=== PATIENT | female | born 1975 | race Caucasian/White ===

== ENCOUNTER → 2023-08-23 | Outpatient (CLI) | payer SELFPAY ==
[2023-08-23 13:55] LABS: Absolute Lymphocyte Count 1.54 X10^3/uL (0.83-4.51); Absolute Neutrophil Count 3.3 X10^3/uL (2.0-7.7); Basophil# 0.05 X10^3/uL; Basophil% 0.9 % (0-1); Eosinophil# 0.23 X10^3/uL; Eosinophils% 4.3 % (0-5); Hematocrit 30.9 % (37-47); Hemoglobin 8.9 g/dL (12.0-15.0); Lymphocyte # 1.54 X10^3/ul (0.83-4.51); Lymphocyte % 28.6 % (19-41); Mean Corp Hgb Conc 28.8 g/dL (32-36); Mean Corpuscular Hgb 22.7 pg (27.0-32.0); Mean Corpuscular Volume 78.8 fL (81-99); Mean Platelet Vol. 9.5 fl (6.2-12.0); Monocyte# 0.26 X10^3/uL; Monocyte% 4.8 % (0-10); NRBC Flagged by Analyzer 0 % (0-5); Neutrophil # 3.29 X10^3/uL (2.7-7.7); Neutrophil % 61.2 % (47-70); Platelet Count 418 K/mm3 (150-450); RBC Distribution Width CV 18.1 % (11.6-14.6); RBC Distribution Width SD 51.9 fl (35.1-43.9); Red Blood Count 3.92 M/mm3 (4.2-5.4); White Blood Count 5.4 K/mm3 (4.4-11.0)
[2023-08-23 14:04] LABS: Vitamin B12 656 pg/mL (211-911); Vitamin D,25 Hydroxy 23.9 ng/mL
[2023-08-23 14:06] LABS: Progesterone Level < 0.21 ng/mL (See Comment)
[2023-08-23 14:10] LABS: ALB/GLOB Ratio 0.9 RATIO (0.9-2.4); AST(SGOT) 13 U/L (15-37); Alanine Aminotransfer ALT/SGPT 25 U/L (13-56); Albumin, Serum 3.5 g/dL (3.2-5.0); Alkaline Phosphatase 71 U/L (45-117); Anion Gap 8 (5-15); BUN 9 mg/dL (7-18); BUN/Creat Ratio 14.2 RATIO (10-20); Calcium,Total 9.1 mg/dL (8.5-10.1); Chloride 105 mmol/L (98-107); Creatinine, Serum 0.63 mg/dL (0.55-1.02); EST Glomerular Filtration Rate 105 mL/min (>60); Est Glom Filt Rate - Afr Amer 128 mL/min (>60); Estradiol 180.6 pg/mL; Ferritin 5 ng/mL (8-252); Globulin 3.7 g/dL (2.2-4.2); Glucose 104 mg/dL (74-106); Magnesium 2.1 mg/dL (1.6-2.6); Potassium 3.9 mmol/L (3.5-5.1); Protein, Total 7.2 g/dL (6.4-8.2); Sodium Level 140 mmol/L (136-145); T4 Total, Thyroxin 9.8 ug/dL (4.8-13.9); Thyroid Stim Hormone (TSH) 1.55 uIU/mL (0.358-3.74)
[2023-08-26 11:10] LABS: Iron 17 ug/dL (50-170)
== END | disposition home or self-care (01) ==
DX: R53.83 Other fatigue (principal); R06.00 Dyspnea, unspecified
CPT/HCPCS: 80053; 82306; 82607; 82670; 82728; 83540; 83735; 84144; 84436; 84443; 85025

== ENCOUNTER 2024-03-21 01:58 | Inpatient (IN) | payer OTHER, SELFPAY ==
[2024-03-21] VITALS (20 sets, daily range): BP systolic 96–134; BP diastolic 56–82; PULSE 78–94; RESP 14–20; TEMP 36.1–37; O2SAT 95–100; BMI 34.0; BMI 34.2
--- NOTE | 2024-03-21 02:13 | EKG12_ITS ---
Test Reason : DYSRHYTHMIA Blood Pressure : / mmHG Vent. Rate : 097 BPM Atrial Rate : 097 BPM P-R Int : 158 ms QRS Dur : 086 ms QT Int : 362 ms P-R-T Axes : 063 057 041 degrees QTc Int : 459 ms Normal sinus rhythm Normal ECG Confirmed by ARELI HILLIARD, JOCELYN ([id number]), science editor MARTHA MORGAN ([id number]) on 03/24/2024 6:31:52 AM Referred By: LAUREN Confirmed By:ODALIS SINGLETON MD
--- NOTE | 2024-03-21 02:24 | ED.VIS.CHEST ---
HPI History of Present Illness Chief Complaint: Palpitations Narrative Narrative: Patient is a 48-year-old female with past medical history of anemia does not follow with a physician on a regular basis who presents to the emergency department the chief complaint of lightheadedness. Patient states over the past week she has noted that she has lightheadedness and shortness of breath with exertion that progressively worsened prompting her to come here for the evaluation management. She states that she is able to hear her heart racing in her ear as well. Patient states that she has been menstruating now for a significant amount of time and has a appointment scheduled with her LEAF STRIPPER in the outpatient setting in the near future. Patient states that she has not required blood transfusions in the past. Denies any pain. Patient states that when she goes from a seated to standing position she does get lightheaded. PFSH [facility] Medical History Anemia Home Medications ?Medication ?Instructions ?Recorded ?Last Taken ?Type chlorophyllin copper com(bulk) 100 ea miscellaneous 03/21/24 Unknown History % powder multivitamin with minerals 1 tab PO DAILY 03/21/24 Unknown History Allergy/AdvReac Type Severity Reaction Status Date / Time No Known Allergies Allergy Verified 03/21/24 01:58 Surgical History History of oophorectomy, unilateral Social History Smoking Status: Never smoker ROS ROS ED ROS Narrative Constitutional: Complains of lightheadedness as noted above denies headaches, fevers, chills, dizziness Eyes: Denies change in vision double vision blurry vision Cardiovascular: Denies chest pain or palpitations Respiratory: Denies coughing wheezing shortness of breath Abdomen: Denies abdominal pain nausea vomit diarrhea : Complains of menstruation for significant time now as noted above denies any pain phonation, polyuria Neurological: Denies numbness, weakness, tingling Musculoskeletal: Denies back pain Skin: Denies rashes or lesions EXAM Physical Exam Narrative Exam Narrative: General: Patient lying in bed resting comfortably did not appear to be in acute distress. Patient does appear to be pale Head: Atraumatic, normocephalic Eyes: PERRL bilaterally, EOMI bilaterally, no conjunctival injection noted Neck: Soft, supple, trachea midline Cardiovascular: Regular rate and rhythm no murmurs gallops rubs noted Respiratory: Clear to auscultation bilaterally no rales rhonchi wheeze noted Abdomen: Soft, nondistended, nontender to palpation, bowel sounds present x 4 Extremities: +5/5 strength noted in the bilateral upper and lower extremities, no pedal edema on exam, radial pulses +2/4 in the bilateral upper extremities Neurological: Patient was following commands knew that she was at [facility] the year is 2023 Skin: Warm, dry, patient is pale on exam Const Vital Signs: 03/21/24 01:59 03/21/24 04:00 03/21/24 04:48 Temperature 97 F L 98.6 F Temperature Source Temporal Oral Pulse Rate 94 89 85 Respiratory Rate 14 16 20 H Blood Pressure 133/82 H 120/56 L 96/56 L Blood Pressure Mean 99 77 69 Pulse Ox 100 100 100 Oxygen Delivery Method Room Air Room Air Room Air MDM MDM MDM Narrative Medical decision making narrative: Patient is a 48-year-old female who presents to the emergency department with a chief complaint of lightheadedness and feeling short of breath. Patient will have workup performed here on the differential diagnosis includes but not limited to anemia, CHF, ACS. Once workup is obtained reviewed she will be reevaluated. Patient's CBC was significant for leukocytosis of 5.2 that is normal, hemoglobin showed anemia with a hemoglobin of 5.3, MCV normal at 86.9, plate count normal at 301. Patient's sodium normal 140, potassium normal 3.7, creatinine normal at 0.64. Patient's AST and ALT were 20 and 31 respectively, troponin normal at 4, EKG was reviewed and showed sinus rhythm with a rate of 97 bpm. Patient's AST and ALT were 20 and 31 respectively. Patient's urinalysis showed 250 occult blood negative for infection. At this point time do believe the patient will warrant admission for her symptomatic anemia. Patient case discussed with hospitalist Dr. Real who will accept patient for admission. Patient was notified with all question concerns as bedside. Lab Data Labs: Laboratory Results - last 24 hr 03/21/24 03/21/24 02:25 02:55 WBC 5.2 RBC 1.99 L Hgb 5.3 L* Hct 17.3 L MCV 86.9 MCH 26.6 L MCHC 30.6 L RDW Std Deviation 51.3 H RDW Coeff of Yoselyn 16.2 H Plt Count 301 MPV 9.1 Immature Gran % (Auto) 0.600 Neut % (Auto) 70.1 H Lymph % (Auto) 20.8 [place] % (Auto) 5.2 Eos % (Auto) 2.5 Baso % (Auto) 0.8 Absolute Neuts (auto) 3.7 Absolute Lymphs (auto) 1.08 Nucleated RBC % 0 Differential Comment SCANNED Diff Path Review May foll Polychromasia 1+ Hypochromasia 2+ Anisocytosis 1+ PT 13.1 INR 1.0 APTT 26.0 Sodium 140 Potassium 3.7 Chloride 110 H Carbon Dioxide 25.0 Anion Gap 5 BUN 9 Creatinine 0.64 Estim Creat Clear Calc 110.10 Est GFR (MDRD) Af Amer 125 Est GFR (MDRD) Non-Af 104 BUN/Creatinine Ratio 14.0 Glucose 111 H Calcium 8.8 Total Bilirubin 0.20 AST 20 ALT 31 Alkaline Phosphatase 46 Troponin I High Sens 4 B-Natriuretic Peptide 19.7 Total Protein 6.7 Albumin 3.3 Globulin 3.4 Albumin/Globulin Ratio 1.0 Urine Color Yellow Urine Clarity Sl. Cloudy Urine pH 7.0 Ur Specific [place] 1.010 Urine Protein 15 H Urine Glucose (UA) Normal Urine Ketones Negative Urine Occult Blood 250 H Urine Nitrite Negative Urine Bilirubin Negative Urine Urobilinogen Normal Ur Leukocyte Esterase Negative Urine RBC 10-25 SEEN Urine WBC 0 SEEN Ur Squamous Epith Cells 0-5 SEEN Urine Bacteria 0 SEEN Urine Mucus 0 SEEN Blood Type A NEGATIVE Antibody Screen NEGATIVE Crossmatch See Detail Discharge Plan Triage Chief Complaint: Palpitations ED Provider: Brent Lazar Dx/Rx/DC Orders Clinical Impression: Anemia, Abnormal vaginal bleeding Prescriptions: No Action multivitamin with minerals Tablet Extended Release 1 tab PO DAILY chlorophyllin copper com(bulk) 100 % powder miscellaneous Primary Care Provider: Care Physician,No Primary Referrals: Care Physician,No Primary [Primary Care Provider] - Print Language: Canadian
[2024-03-21] MEDS: 0.9% Normal Saline (1000mL) 1,000 ML 999 ML IV (02:30)
[2024-03-21 02:46] LABS: Absolute Lymphocyte Count 1.08 X10^3/uL (0.83-4.51); Absolute Neutrophil Count 3.7 X10^3/uL (2.0-7.7); Basophil# 0.04 X10^3/uL; Basophil% 0.8 % (0-1); Eosinophil# 0.13 X10^3/uL; Eosinophils% 2.5 % (0-5); Hematocrit 17.3 % (37-47); Lymphocyte # 1.08 X10^3/ul (0.83-4.51); Lymphocyte % 20.8 % (19-41); Mean Corp Hgb Conc 30.6 g/dL (32-36); Mean Corpuscular Hgb 26.6 pg (27.0-32.0); Mean Corpuscular Volume 86.9 fL (81-99); Mean Platelet Vol. 9.1 fl (6.2-12.0); Monocyte# 0.27 X10^3/uL; Monocyte% 5.2 % (0-10); NRBC Flagged by Analyzer 0 % (0-5); Neutrophil # 3.65 X10^3/uL (2.7-7.7); Neutrophil % 70.1 % (47-70); POSITIVE COUNT YES; Platelet Count 301 K/mm3 (150-450); RBC Distribution Width CV 16.2 % (11.6-14.6); RBC Distribution Width SD 51.3 fl (35.1-43.9); Red Blood Count 1.99 M/mm3 (4.2-5.4); White Blood Count 5.2 K/mm3 (4.4-11.0)
[2024-03-21 02:56] LABS: Prothrombin Time (Protime)PT. 13.1 SECONDS (11.7-14.9)
[2024-03-21 03:02] LABS: Bacteria 0 SEEN /hpf (None Seen); Mucous, Urine 0 SEEN /hpf (<or=2+); White Blood Cells 0 SEEN /hpf (0-5)
[2024-03-21 03:04] LABS: Color, Urine Yellow (Yellow); Glucose, Dipstick Normal (Normal); Ketone-Dipstick Negative (Negative); Leukocyte Esterase-Dipstick Negative /ul (Negative); Nitrite-Dipstick Negative (Negative); Occult Blood-Urine 250 /ul (Negative); Protein-Dipstick 15 mg/dl (Negative); Urine Bilirubin Dipstick Negative (Negative); Urine Clarity Sl. Cloudy (Clear); Urine Urobilinogen Normal (Normal)
[2024-03-21 03:21] LABS: Differential Indicated SCAN CRITERIA MET; Hemoglobin 5.3 g/dL (12.0-15.0)
[2024-03-21 03:42] LABS: AST(SGOT) 20 U/L (15-37); Alanine Aminotransfer ALT/SGPT 31 U/L (13-56); Albumin, Serum 3.3 g/dL (3.2-5.0); Alkaline Phosphatase 46 U/L (45-117); Anion Gap 5 (5-15); BUN 9 mg/dL (7-18); Calcium,Total 8.8 mg/dL (8.5-10.1); Chloride 110 mmol/L (98-107); Creatinine, Serum 0.64 mg/dL (0.55-1.02); EST Glomerular Filtration Rate 104 mL/min (>60); Est Glom Filt Rate - Afr Amer 125 mL/min (>60); Globulin 3.4 g/dL (2.2-4.2); Glucose 111 mg/dL (74-106); Potassium 3.7 mmol/L (3.5-5.1); Protein, Total 6.7 g/dL (6.4-8.2); Sodium Level 140 mmol/L (136-145); Troponin-I HS 4 pg/mL (3.0-54.0)
[2024-03-21 03:50] LABS: Red Blood Cells-Urine 10-25 SEEN /hpf (0-5); Squamous Epithelial Cells - UA 0-5 SEEN /hpf (5-10)
[2024-03-21 03:55] LABS: BNP,B-Type NATRIURETIC PEPTIDE 19.7 pg/mL (0-100)
[2024-03-21 04:41] LABS: Anisocytosis 1+; Differential Comment SCANNED; Hypochromasia 2+; Polychromasia 1+
--- NOTE | 2024-03-21 04:58 | HP.PCM_ITS ---
HPI - General General Date of Admission: 03/21/24 Date of Service: 03/21/24 Chief Complaint: Lightheaded and dizziness HPI Narrative SHAHNAZ SAWYER, is a 48 F who presents to the emergency room with chief complaint of lightheadedness and dizziness. Patient states that she has had her menstrual period and heavy bleeding for over a month up to 1 to 2 months. She states she has an appointment scheduled with her BOOM MAN Dr. Russell(has not seen him since delivering her last child 18 years ago) on April 09 coming up ,however, this morning she became lightheaded and short of breath and came in for evaluation. Laboratory studies were remarkable for a hemoglobin level of 5.3 for which she was typed and crossed and transfused 2 units in the emergency room. The patient denies any fevers or chills, chest pain, shortness of breath and/or nausea or vomiting or diarrhea and denies hematochezia or melena. No iron studies were ordered prior to transfusion in the emergency room. Patient does states she is starting to feel better since initiating transfusion and will be admitted to the hospital for management of anemia. [facility] Medical History Anemia Home Medications ?Medication ?Instructions ?Recorded ?Last Taken ?Type chlorophyllin copper com(bulk) 100 ea miscellaneous 03/21/24 Unknown History % powder multivitamin with minerals 1 tab PO DAILY 03/21/24 Unknown History Allergy/AdvReac Type Severity Reaction Status Date / Time No Known Allergies Allergy Verified 03/21/24 01:58 Surgical History History of oophorectomy, unilateral Social History Smoking Status: Never smoker ROS Constitutional Constitutional: Denies chills or fever(s) Eyes Eyes: Denies change in vision ENT HEENT: Denies abnormal hearing Cardiovascular Cardiovascular: Denies chest pain or edema Respiratory/Chest Respiratory/Chest: Reports shortness of breath with exertion; Denies cough Gastrointestinal Gastrointestinal: Denies abdominal pain, constipation, diarrhea, hematochezia, melena, nausea or vomiting Genitourinary Genitourinary: Denies dysuria or hematuria Musculoskeletal Musculoskeletal: Denies back pain Integumentary Integumentary: Denies dry skin Neurologic Neurologic: Denies abnormal gait or abnormal speech Psychiatric Psychiatric: Denies anxiety Hematologic/Lymphatic Hematologic/Lymphatic: Reports anemia Vital Signs Vital Signs Vital Signs: 03/21/24 01:59 03/21/24 04:00 03/21/24 04:48 Temperature 97 F L 98.6 F Temperature Source Temporal Oral Pulse Rate 94 89 85 Respiratory Rate 14 16 20 H Blood Pressure 133/82 H 120/56 L 96/56 L Blood Pressure Mean 99 77 69 Pulse Ox 100 100 100 Oxygen Delivery Method Room Air Room Air Room Air Weight Weight: 192 lb 3.889 oz Body Mass Index (BMI) 34.0 Physical Exam Const alert, oriented x3 and no apparent distress General Appearance: cooperative and well developed HEENT normocephalic and head/scalp atraumatic Eyes PERRL Neck no lymphadenopathy Lymph Lymphatic: no lymphadenopathy noted Resp normal respiratory effort, normal air movement and clear to auscultation bilaterally Cardio regular rate, regular rhythm, S1 normal heart sound, S2 normal heart sound and no murmurs GI normal to inspection, nondistended, normoactive bowel sounds Extremity no clubbing, cyanosis or edema Skin General Skin Exam: no breakdown and turgor normal Neuro no focal motor deficits and no sensory deficits noted Psych thought process normal, cooperative and affect normal Results Lab / Micro Data 03/21/24 02:25 03/21/24 02:25 Labs: Laboratory Results - last 24 hr 03/21/24 02:25: WBC 5.2, RBC 1.99 L, Hgb 5.3 L*, Hct 17.3 L, MCV 86.9, MCH 26.6 L, MCHC 30.6 L, RDW Std Deviation 51.3 H, RDW Coeff of Yoselyn 16.2 H, Plt Count 301, MPV 9.1, Immature Gran % (Auto) 0.600, Neut % (Auto) 70.1 H, Lymph % (Auto) 20.8, [place] % (Auto) 5.2, Eos % (Auto) 2.5, Baso % (Auto) 0.8, Absolute Neuts (auto) 3.7, Absolute Lymphs (auto) 1.08, Nucleated RBC % 0, Differential Comment SCANNED, Diff Path Review May foll, Polychromasia 1+, Hypochromasia 2+, Anisocytosis 1+, PT 13.1, INR 1.0, APTT 26.0, Sodium 140, Potassium 3.7, C hloride 110 H, Carbon Dioxide 25.0, Anion Gap 5, BUN 9, Creatinine 0.64, Estim Creat Clear Calc 110.10, Est GFR (MDRD) Af Amer 125, Est GFR (MDRD) Non-Af 104, BUN/Creatinine Ratio 14.0, Glucose 111 H, Calcium 8.8, Total Bilirubin 0.20, AST 20, ALT 31, Alkaline Phosphatase 46, Troponin I High Sens 4, B-Natriuretic Peptide 19.7, Total Protein 6.7, Albumin 3.3, Globulin 3.4, Albumin/Globulin Ratio 1.0, Blood Type A NEGATIVE, Antibody Screen NEGATIVE, Crossmatch See Detail 03/21/24 02:55: Urine Color Yellow, Urine Clarity Sl. Cloudy, Urine pH 7.0, Ur Specific [place] 1.010, Urine Protein 15 H, Urine Glucose (UA) Normal, Urine Ketones Negative, Urine Occult Blood 250 H, Urine Nitrite Negative, Urine Bilirubin Negative, Urine Urobilinogen Normal, Ur Leukocyte Esterase Negative, Urine RBC 10-25 SEEN, Urine WBC 0 SEEN, Ur Squamous Epith Cells 0-5 SEEN, Urine Bacteria 0 SEEN, Urine Mucus 0 SEEN Assessment & Plan Assessment/Plan (1) Abnormal vaginal bleeding: (2) Anemia: PLAN: Plan 1 anemia secondary to menorrhagia?admit patient to progressive care unit for continuous telemetry while receiving transfusion of packed red blood cells. Will consult BOOM MAN in the hospital to evaluate for further intervention. Will go ahead and start Aygestin 5 mg daily x 5 days. Collecting total iron-binding capacity, ferritin or iron and peripheral smear are no longer helpful due to transfusion from donor blood was already initiated in the emergency room. 2. DVT prophylaxis?SCDs Charges/Coding Visit Charges Inpatient E&M: 53175 Init Hosp L2
--- NOTE | 2024-03-21 05:22 | US_ITS ---
STUDY: ULTRASOUND TRANSVAGINAL CLINICAL: Female, 48 years old. Anemia TECHNIQUE: Transvaginal COMPARISON: None. FINDINGS: Normal uterine size measuring 11.9 cm x 8 signed by 7.1 cm in maximal craniocaudal dimension. There are no myometrial masses. There is evidence of endometrial thickening. The endometrium measures 26 mm. There is increased vascularity. . There are no endometrial masses, and there is no fluid in the endometrial cavity. Normal uterine cervix. Normal right ovary, measuring 5.5 cm x 2.7 cm x 2.2 cm. There is a 5.1 cm x 3 centimeters by 2.2 cm cyst. The left ovary was not visualized. There is no free fluid in the pelvis. US/Transvaginal Non- IMPRESSION: Enlarged uterus and endometrial thickening. Right ovarian cyst. Electronically Signed: Bhaskar Copeland MD at 9:42 EDT ,
--- NOTE | 2024-03-21 07:12 | CON.PCM_ITS ---
Assessment & Plan Assessment/Plan (1) Abnormal vaginal bleeding: PLAN: Heavy vaginal bleeding for 2 months. Hgb 8.9 about 6 months ago, and now 5.3 in ER. Receiving 2 units PRBC's. Vital signs are stable. Check CBC 4 hours after transfusion and Provera taper started for now. Discussed possible polyp, perimenopause, and concern for hyperplasia or malignancy given obesity. Discussed need for endometrial sampling and benefits of progesterone IUD. Discussed may need D&C. Will wait for results of pelvic US and post transfusion CBC. Will update provider coming contracts law professor Dr. Saldivar. (2) Anemia: HPI Consult Data Date of Consult: 03/21/24 HPI Narrative HPI Narrative: SHAHNAZ SAWYER, is a 48 F who presents with vaginal bleeding. She reports she has not seen a marketing administrative assistant in years. She was having regular, monthly menstrual cycles up until about 2 months ago. She skipped a period and then had heavy bleeding. The heavy bleeding has been daily for 2 months. She came into the ER overnight due to feeling lightheaded and dizzy. [facility] Medical History Anemia Home Medications ?Medication ?Instructions ?Recorded ?Last Taken ?Type chlorophyllin copper com(bulk) 100 ea miscellaneous 03/21/24 Unknown History % powder multivitamin with minerals 1 tab PO DAILY 03/21/24 Unknown History Allergy/AdvReac Type Severity Reaction Status Date / Time No Known Allergies Allergy Verified 03/21/24 01:58 Surgical History History of oophorectomy, unilateral Social History Smoking Status: Never smoker Physical Exam Const alert and no apparent distress General Appearance: comfortable HEENT normocephalic Resp normal respiratory effort GI soft to palpation, non-tender and non-distended external exam normal, adnexae non-tender and no adnexal masses Narrative: About 30-40 cc of dark red blood and small blood clots removed from the vagina. The cervix was difficult to fully visualize given bed and light limitations in ICU. On bimanual exam the cervix feels parous and dilated, and a possible 1 cm polyp is noted just inside the external cervical os. Lab / Micro Data 03/21/24 02:25 03/21/24 02:25 Labs: Laboratory Results - last 24 hr 03/21/24 02:25: WBC 5.2, RBC 1.99 L, Hgb 5.3 L*, Hct 17.3 L, MCV 86.9, MCH 26.6 L, MCHC 30.6 L, RDW Std Deviation 51.3 H, RDW Coeff of Yoselyn 16.2 H, Plt Count 301, MPV 9.1, Immature Gran % (Auto) 0.600, Neut % (Auto) 70.1 H, Lymph % (Auto) 20.8, [place] % (Auto) 5.2, Eos % (Auto) 2.5, Baso % (Auto) 0.8, Absolute Neuts (auto) 3.7, Absolute Lymphs (auto) 1.08, Nucleated RBC % 0, Differential Comment SCANNED, Diff Path Review May foll, Polychromasia 1+, Hypochromasia 2+, Anisocytosis 1+, PT 13.1, INR 1.0, APTT 26.0, Sodium 140, Potassium 3.7, C hloride 110 H, Carbon Dioxide 25.0, Anion Gap 5, BUN 9, Creatinine 0.64, Estim Creat Clear Calc 110.10, Est GFR (MDRD) Af Amer 125, Est GFR (MDRD) Non-Af 104, BUN/Creatinine Ratio 14.0, Glucose 111 H, Calcium 8.8, Total Bilirubin 0.20, AST 20, ALT 31, Alkaline Phosphatase 46, Troponin I High Sens 4, B-Natriuretic Peptide 19.7, Total Protein 6.7, Albumin 3.3, Globulin 3.4, Albumin/Globulin Ratio 1.0, Blood Type A NEGATIVE, Antibody Screen NEGATIVE, Crossmatch See Detail 03/21/24 02:55: Urine Color Yellow, Urine Clarity Sl. Cloudy, Urine pH 7.0, Ur Specific [place] 1.010, Urine Protein 15 H, Urine Glucose (UA) Normal, Urine Ketones Negative, Urine Occult Blood 250 H, Urine Nitrite Negative, Urine Bilirubin Negative, Urine Urobilinogen Normal, Ur Leukocyte Esterase Negative, Urine RBC 10-25 SEEN, Urine WBC 0 SEEN, Ur Squamous Epith Cells 0-5 SEEN, Urine Bacteria 0 SEEN, Urine Mucus 0 SEEN
[2024-03-21 07:26] LABS: Internal QC Validated? YES +Cl - CLEAR BKGD; Pregnancy, Urine Negative Negative; Record Kit Lot#,Urine Preg HCG0000772476
[2024-03-21] MEDS: MEDROXYPROGESTERONE ACETATE 10 MG TABLET 20 MG PO ×3 (08:17→21:46)
--- NOTE | 2024-03-21 09:20 | CASEMGMT ---
CHRISTOPHER DE LA FUENTE Assessment Face to Face with patient for initial transition planning/care coordination assessment. CHRISTOPHER DE LA FUENTE introduced self and role at [facility], pt voices understanding. Pt is A&Ox4 and is resting comfortably in bed and is calm. Care providers, pharmacy, and demographics verified. Admitting dx: Severe Anemia LACE Strata: 1 PCP: No PCP, Provider list given Specialists: Denies. TECHNICAL ASSISTANT is consulted currently Preferred Pharmacy: [facility] During this stay Insurance: Self Pay. E-Mail sent to Preethi (Sap Payroll Consultant) to see the pt and her regarding this. [facility] Liaison is also consulted to see. Prescription Benefit: None at this time LNOK: Leland Skinner (H), Espinoza Tammy (Friend) Living Arrangements: Pt lives with her and 2 Adult children in a 2 story home with 2 steps to enter ADLs/IADLs: Ind Transportation: Pt and pt do not drive and state that they hire drivers. Pt plans to hire a furniture mover driver at time of DC. DME: Cane but does not use. Pt denies all other DME uses or needs HHC/SNF: Denies Hx or needs Pt?s goal: home Plan: Home no needs. 6-Click is 22. No PT/OT ordered. Pt denies the need for HHC or OP Tx. Pt states that she feels safe discharging home with her family once she is medically ready. Ez Skinner RN, CM
--- NOTE | 2024-03-21 10:07 | CASEMGMT ---
Social Work SW spoke with Jorge Sadler, who confirms pt has been seen regarding financial status and pt does have a type of insurance coverage. Pt to work with the Jorge Liaison going forward. No further SW needs at this time. CHARLI Breaux
[2024-03-21] MEDS: 0.9% Normal Saline (1000mL) 1,000 ML 75 ML IV (11:07)
[2024-03-21 11:25] LABS: Hematocrit 24.4 % (37-47); Hemoglobin 7.5 g/dL (12.0-15.0)
[2024-03-21 11:54] LABS: Pathologist Review Reviewed
--- NOTE | 2024-03-21 14:52 | PCM.HOSP.N ---
Hospitalist Note Still having some bleeding, repeat hemoglobin after 2 units packed red blood cells 7.5, will repeat at 6-hour sergio given continued bleeding, may need another transfusion. Patient started on medroxyprogesterone. Transvaginal ultrasound with enlarged uterus and endometrial thickening with right ovarian cyst, gynecology following. Given that patient is continuing to have some bleeding we will keep patient today and trend hemoglobin, per gynecology patient may need intervention
[2024-03-21 17:15] LABS: Hematocrit 24.3 % (37-47); Hemoglobin 7.6 g/dL (12.0-15.0)
[2024-03-22] VITALS (8 sets, daily range): BP systolic 104–124; BP diastolic 64–83; PULSE 74–100; RESP 12–18; TEMP 36.2–36.6; O2SAT 97–100
[2024-03-22] MEDS: 0.9% Normal Saline (1000mL) 1,000 ML 75 ML IV ×2 (01:25→16:50)
[2024-03-22] MEDS: MEDROXYPROGESTERONE ACETATE 10 MG TABLET 20 MG PO (05:17)
--- NOTE | 2024-03-22 07:32 | PN.HOSP_ITS ---
Reason for Visit Reason for Visit: Diagnoses Anemia, unspecified (03/21/24) Abnormal uterine and vaginal bleeding, unspecified (03/21/24) Objective Data Objective Data Vital Signs: Vital Signs Temp Pulse Resp BP Pulse Ox O2 Del Method 98 F 74 15 114/70 97 Room Air 03/22/24 05:00 03/22/24 05:00 03/22/24 05:00 03/22/24 05:00 03/22/24 05:00 03/22/24 05:00 Oxygen Delivery Method Room Air Weight: 87.5 kg Body Mass Index (BMI) 34.2 Intake & Output: Intake and Output for Last 24 Hours 03/20/24 03/21/24 03/22/24 23:59 23:59 23:59 Intake Total 1322 / 1322 1240 / 1240 Balance 1322 / 1322 1240 / 1240 Lab / Micro Data 03/21/24 17:00 03/21/24 02:25 Labs: Laboratory Results - last 24 hr 03/21/24 02:25: Diff Path Review Reviewed, Crossmatch See Detail 03/21/24 11:15: Hgb 7.5 L, Hct 24.4 L 03/21/24 17:00: Hgb 7.6 L, Hct 24.3 L Radiography Diagnostic Testing: Radiology Impression Transvaginal US 03/21/24 05:22 IMPRESSION: Enlarged uterus and endometrial thickening. Right ovarian cyst. Electronically Signed: Bhaskar Copeland MD at 9:42 EDT , Assessment & Plan Assessment/Plan (1) Abnormal vaginal bleeding: (2) Anemia: PLAN: Plan 1 anemia secondary to menorrhagia?admit patient to progressive care unit for continuous telemetry while receiving transfusion of packed red blood cells. Will consult WEB PROJECT MANAGER in the hospital to evaluate for further intervention. Will go ahead and start Aygestin 5 mg daily x 5 days. Collecting total iron-binding capacity, ferritin or iron and peripheral smear are no longer helpful due to transfusion from donor blood was already initiated in the emergency room. 2. DVT prophylaxis?SCDs
--- NOTE | 2024-03-22 07:32 | PCM.PN.HOSP ---
Reason for Visit Reason for Visit: Diagnoses Anemia, unspecified (03/21/24) Abnormal uterine and vaginal bleeding, unspecified (03/21/24) Subjective Subjective Patient is a 48-year-old lady admitted with menorrhagia. Was found to be significantly anemic admitted to a monitored bed for further management. Objective Data Objective Data Vital Signs: Vital Signs Temp Pulse Resp BP Pulse Ox O2 Del Method 98 F 74 15 114/70 97 Room Air 03/22/24 05:00 03/22/24 05:00 03/22/24 05:00 03/22/24 05:00 03/22/24 05:00 03/22/24 05:00 Oxygen Delivery Method Room Air Weight: 87.5 kg Body Mass Index (BMI) 34.2 Intake & Output: Intake and Output for Last 24 Hours 03/20/24 03/21/24 03/22/24 23:59 23:59 23:59 Intake Total 1322 / 1322 1240 / 1240 Balance 1322 / 1322 1240 / 1240 Lab / Micro Data 03/22/24 07:05 03/21/24 02:25 Labs: Laboratory Results - last 24 hr 03/21/24 02:25: Diff Path Review Reviewed, Crossmatch See Detail 03/21/24 11:15: Hgb 7.5 L, Hct 24.4 L 03/21/24 17:00: Hgb 7.6 L, Hct 24.3 L Radiography Diagnostic Testing: Radiology Impression Transvaginal US 03/21/24 05:22 IMPRESSION: Enlarged uterus and endometrial thickening. Right ovarian cyst. Electronically Signed: Bhaskar Copeland MD at 9:42 EDT , Physical Exam Narrative GENERAL: cooperative HEENT: Atraumatic; normocephalic EYES; Anicteric, Normal Conjunctiva NECK; supple, normal thyroid, RESPIRATORY: Diminished to auscultation CARDIOVASCULAR: Regular S1 S2, GI: soft, normoactive bowel sounds, : No Renal angle tenderness; EXTREMITIES: No edema, no clubbing, MUSCULOSKELETAL: no muscle wasting NEURO: Awake; no lateralizing signs. SKIN: No Rash PSYCH; Flat affect Assessment & Plan Assessment/Plan (1) Abnormal vaginal bleeding: (2) Anemia: PLAN: Plan Patient is a 48-year-old lady admitted with menorrhagia. Was found to be significantly anemic admitted to a monitored bed for further management. 1. Severe anemia secondary to acute blood loss -from menorrhagia admitted to a monitored bed patient transfused with 2 unit PRBC with evaluation of the underlying etiology being pursued. Patient hemoglobin as of this a.m. is 6.7 additional units of PRBC ordered 2. Menorrhagia ? Ultrasound obtained did show Enlarged uterus and endometrial thickening. Right ovarian cyst. Patient has been seen in consultation by EHS SPECIALIST. Notes and recommendations reviewed 3. Class I obesity with BMI of 34.2 ? Weight loss advised 4. DVT prophylaxis ? Bilateral SCDs Time spent in the patient's overall evaluation,decision-making process, review of diagnostic data, adjustment of management, discussion with other providers, nursing nursing and ancillary staff involved in patient's care documentation, 36 Minutes Charges/Coding Visit Charges Inpatient E&M: 01741 Subs Hosp L2
[2024-03-22 07:39] LABS: Absolute Lymphocyte Count 1.64 X10^3/uL (0.83-4.51); Absolute Neutrophil Count 3.6 X10^3/uL (2.0-7.7); Basophil# 0.05 X10^3/uL; Basophil% 0.9 % (0-1); Eosinophil# 0.23 X10^3/uL; Eosinophils% 3.9 % (0-5); Hematocrit 21.8 % (37-47); Hemoglobin 6.7 g/dL (12.0-15.0); Lymphocyte # 1.64 X10^3/ul (0.83-4.51); Lymphocyte % 28.1 % (19-41); Mean Corp Hgb Conc 30.7 g/dL (32-36); Mean Corpuscular Hgb 26.4 pg (27.0-32.0); Mean Corpuscular Volume 85.8 fL (81-99); Mean Platelet Vol. 9.3 fl (6.2-12.0); Monocyte# 0.26 X10^3/uL; Monocyte% 4.5 % (0-10); NRBC Flagged by Analyzer 0 % (0-5); Neutrophil # 3.61 X10^3/uL (2.7-7.7); Neutrophil % 61.9 % (47-70); Platelet Count 285 K/mm3 (150-450); RBC Distribution Width CV 17.1 % (11.6-14.6); RBC Distribution Width SD 53.5 fl (35.1-43.9); Red Blood Count 2.54 M/mm3 (4.2-5.4); White Blood Count 5.8 K/mm3 (4.4-11.0)
--- NOTE | 2024-03-22 13:03 | PCM.PROGNOTE ---
Subjective Subjective pt seen at bedside, reports she is feeling better today after receiving blood today. pt reports does not feel dizzy or SOB when up and walking but feels a throbbing in her head heart beat like in her head. Pt reports her bleeding has slowed since last night. pt reports last night she was still passing clots. pt reports no other concerns at this time. Objective Data Objective Data Vital Signs: Vital Signs Temp Pulse Resp BP Pulse Ox O2 Del Method 97.2 F L 91 15 104/64 100 Room Air 03/22/24 10:55 03/22/24 10:55 03/22/24 10:55 03/22/24 10:55 03/22/24 10:55 03/22/24 10:55 Oxygen Delivery Method Room Air Weight: 87.5 kg Body Mass Index (BMI) 34.2 Intake & Output: Intake and Output for Last 24 Hours 03/20/24 03/21/24 03/22/24 23:59 23:59 23:59 Intake Total 1322 / 1322 1858.75 / 1858.75 Balance 1322 / 1322 1858.75 / 1858.75 Lab / Micro Data 03/22/24 07:05 03/21/24 02:25 Labs: Laboratory Results - last 24 hr 03/21/24 02:55: Crossmatch See Detail 03/21/24 17:00: Hgb 7.6 L, Hct 24.3 L 03/22/24 07:05: WBC 5.8, RBC 2.54 L, Hgb 6.7 L, Hct 21.8 L, MCV 85.8, MCH 26.4 L, MCHC 30.7 L, RDW Std Deviation 53.5 H, RDW Coeff of Yoselyn 17.1 H, Plt Count 285, MPV 9.3, Immature Gran % (Auto) 0.700, Neut % (Auto) 61.9, Lymph % (Auto) 28.1, [place] % (Auto) 4.5, Eos % (Auto) 3.9, Baso % (Auto) 0.9, Absolute Neuts (auto) 3.6, Absolute Lymphs (auto) 1.64, Nucleated RBC % 0 Physical Exam Const alert and oriented x3 General Appearance: cooperative and comfortable Orientation / Consciousness: awake HEENT normocephalic Neuro oriented x3 Psych mental status grossly normal Assessment & Plan Assessment/Plan (1) Abnormal vaginal bleeding: (2) Endometrial thickening on ultrasound: (3) Acute blood loss anemia: PLAN: Plan HD#1 1) recheck CBC today after total 3 units PRBC 2) Change to Megace BID- if cleared for dc home by medicine- if dc home will order to [facility] pharmacy as well 3) OR consent obtained- plan for OR saturday 03/24 Hysteroscopy, D&C possible polypectomy with symphion with Liletta IUD insertion 4) Pt was counseled on risks of surgery including but not limited to bleeding, infection, perforation of uterus with subsequent injury to surround structures including bladder or bowel. reviewed irregular bleeding with IUD. discused possible need for further transfusion.
[2024-03-22 13:23] LABS: Hematocrit 27.5 % (37-47); Hemoglobin 8.8 g/dL (12.0-15.0)
[2024-03-22] MEDS: Megestrol 40 MG Tablet PO ×2 (15:44→20:51)
[2024-03-23 02:50] VITALS: BP 124/78; PULSE 71; RESP 14; TEMP 36.6; O2SAT 100
[2024-03-23 06:04] LABS: Absolute Neutrophil Count 3.4 X10^3/uL (2.0-7.7); Basophil# 0.06 X10^3/uL; Eosinophil# 0.26 X10^3/uL; Eosinophils% 4.4 % (0-5); Hematocrit 26.2 % (37-47); Lymphocyte % 32.3 % (19-41); Mean Corp Hgb Conc 30.5 g/dL (32-36); Mean Corpuscular Hgb 26.6 pg (27.0-32.0); Mean Platelet Vol. 9.6 fl (6.2-12.0); Monocyte# 0.27 X10^3/uL; Monocyte% 4.6 % (0-10); NRBC Flagged by Analyzer 0 % (0-5); Neutrophil # 3.35 X10^3/uL (2.7-7.7); Platelet Count 277 K/mm3 (150-450); RBC Distribution Width CV 16.6 % (11.6-14.6); RBC Distribution Width SD 52.2 fl (35.1-43.9); Red Blood Count 3.01 M/mm3 (4.2-5.4); White Blood Count 5.9 K/mm3 (4.4-11.0)
[2024-03-23] MEDS: 0.9% Normal Saline (1000mL) 1,000 ML 75 ML IV (06:08)
[2024-03-23 06:46] LABS: Anion Gap 8 (5-15); BUN 10 mg/dL (7-18); BUN/Creat Ratio 16.3 RATIO (10-20); Calcium,Total 8.5 mg/dL (8.5-10.1); Chloride 110 mmol/L (98-107); Creatinine, Serum 0.61 mg/dL (0.55-1.02); EST Glomerular Filtration Rate 109 mL/min (>60); Est Glom Filt Rate - Afr Amer 132 mL/min (>60); Estimated Creatinine Clearance 115.73 ml/min; Glucose 98 mg/dL (74-106); Magnesium 1.9 mg/dL (1.6-2.6); Phosphorus 4.1 mg/dL (2.5-4.9); Potassium 3.4 mmol/L (3.5-5.1); Sodium Level 140 mmol/L (136-145)
--- NOTE | 2024-03-23 07:06 | PN.HOSP_ITS ---
Reason for Visit Reason for Visit: Diagnoses Acute posthemorrhagic anemia (03/21/24) Anemia, unspecified (03/21/24) Abnormal uterine and vaginal bleeding, unspecified (03/21/24) Abnormal findings on diagnostic imaging of other specified body structures (03/21/24) Subjective Subjective Patient seen had a relatively uneventful night. Plan for patient to discharge to follow-up with [facility] as Objective Data Objective Data Vital Signs: Vital Signs Temp Pulse Resp BP Pulse Ox O2 Del Method 98 F 71 14 124/78 H 100 Room Air 03/23/24 02:50 03/23/24 02:50 03/23/24 02:50 03/23/24 02:50 03/23/24 02:50 03/23/24 02:50 Oxygen Delivery Method Room Air Weight: 87.5 kg Body Mass Index (BMI) 34.2 Intake & Output: Intake and Output for Last 24 Hours 03/21/24 03/22/24 03/23/24 23:59 23:59 23:59 Intake Total 1322 / 1322 2762.25 / 2762.25 997.5 / 997.5 Balance 1322 / 1322 2762.25 / 2762.25 997.5 / 997.5 Lab / Micro Data 03/23/24 05:12 03/23/24 05:12 Labs: Laboratory Results - last 24 hr 03/21/24 02:55: Crossmatch See Detail 03/22/24 07:05: WBC 5.8, RBC 2.54 L, Hgb 6.7 L, Hct 21.8 L, MCV 85.8, MCH 26.4 L , MCHC 30.7 L, RDW Std Deviation 53.5 H, RDW Coeff of Yoselyn 17.1 H, Plt Count 285, MPV 9.3, Immature Gran % (Auto) 0.700, Neut % (Auto) 61.9, Lymph % (Auto) 28.1, [place] % (Auto) 4.5, Eos % (Auto) 3.9, Baso % (Auto) 0.9, Absolute Neuts (auto) 3.6, Absolute Lymphs (auto) 1.64, Nucleated RBC % 0 03/22/24 13:10: Hgb 8.8 L, Hct 27.5 L 03/23/24 05:12: WBC 5.9, RBC 3.01 L, Hgb 8.0 L, Hct 26.2 L, MCV 87.0, MCH 26.6 L , MCHC 30.5 L, RDW Std Deviation 52.2 H, RDW Coeff of Yoselyn 16.6 H, Plt Count 277, MPV 9.6, Immature Gran % (Auto) 0.700, Neut % (Auto) 57.0, Lymph % (Auto) 32.3, [place] % (Auto) 4.6, Eos % (Auto) 4.4, Baso % (Auto) 1.0, Absolute Neuts (auto) 3.4, Absolute Lymphs (auto) 1.90, Nucleated RBC % 0, Sodium 140, Potassium 3.4 L , Chloride 110 H, Carbon Dioxide 22.0, Anion Gap 8, BUN 10, Creatinine 0.61, Estim Creat Clear Calc 115.73, Est GFR (MDRD) Af Amer 132, Est GFR (MDRD) Non-Af 109, BUN/Creatinine Ratio 16.3, Glucose 98, Calcium 8.5, Phosphorus 4.1, Magnesium 1.9 Physical Exam Narrative GENERAL: cooperative HEENT: Atraumatic; normocephalic EYES; Anicteric, Normal Conjunctiva NECK; supple, normal thyroid, RESPIRATORY: Diminished to auscultation CARDIOVASCULAR: Regular S1 S2, GI: soft, normoactive bowel sounds, : No Renal angle tenderness; EXTREMITIES: No edema, no clubbing, MUSCULOSKELETAL: no muscle wasting NEURO: Awake; no lateralizing signs. SKIN: No Rash PSYCH; Flat affect Assessment & Plan Assessment/Plan (1) Abnormal vaginal bleeding: (2) Anemia: PLAN: Plan Patient is a 48-year-old lady admitted with menorrhagia. Was found to be significantly anemic admitted to a monitored bed for further management. 1. Severe anemia secondary to acute blood loss -from menorrhagia admitted to a monitored bed patient transfused with 2 unit PRBC with evaluation of the underlying etiology being pursued. Patient hemoglobin as of this a.m. is 6.7 additional units of PRBC ordered ? 03/23/2024 hemoglobin 8.8 patient will be discharged to follow-up with [facility] on 03/24/2024 for Hysteroscopy, D&C possible polypectomy with symphion with Liletta IUD insertion 2. Menorrhagia ? Ultrasound obtained did show Enlarged uterus and endometrial thickening. Right ovarian cyst. Patient has been seen in consultation by [facility]. Notes and recommendations reviewed 3. Class I obesity with BMI of 34.2 ? Weight loss advised 4. DVT prophylaxis ? Bilateral SCDs Time spent in the patient's overall evaluation,decision-making process, review of diagnostic data, adjustment of management, discussion with other providers, nursing nursing and ancillary staff involved in patient's care documentation, 36 Minutes
--- NOTE | 2024-03-23 08:00 | DS.PCM_ITS ---
Providers Date of Admission: 03/21/24 Date of Discharge: 03/23/24 Primary Care Physician: Marii Primary Care Phys Consultations 03/21/24 06:14 Consult: ESTIMATING MANAGER Routine Consulting Provider: Kym Sherwood Reason for Consult: menorragia, anemia EMERGENT Consult: Yes MD Notified: Yes Date Notified: 03/21/24 Time Notified: 05:13 Method of Notification: Verbal Reason For Visit: SEVERE ANEMIA Diagnosis Discharge Diagnosis (1) Abnormal vaginal bleeding: Status: Acute Code(s): N93.9 - Abnormal uterine and vaginal bleeding, unspecified (2) Anemia: Status: Acute Code(s): D64.9 - Anemia, unspecified Plan Patient is a 48-year-old lady admitted with menorrhagia. Was found to be significantly anemic admitted to a monitored bed for further management. 1. Severe anemia secondary to acute blood loss -from menorrhagia admitted to a monitored bed patient transfused with 2 unit PRBC with evaluation of the underlying etiology being pursued. Patient hemoglobin as of this a.m. is 6.7 additional units of PRBC ordered ? 03/23/2024 hemoglobin 8.8 patient will be discharged to follow-up with [facility] on 03/24/2024 for Hysteroscopy, D&C possible polypectomy with symphion with Liletta IUD insertion 2. Menorrhagia ? Ultrasound obtained did show Enlarged uterus and endometrial thickening. Right ovarian cyst. Patient has been seen in consultation by ESTIMATING MANAGER. Notes and recommendations reviewed 3. Class I obesity with BMI of 34.2 ? Weight loss advised 4. DVT prophylaxis ? Bilateral SCDs Time spent in the patient's overall evaluation,decision-making process, review of diagnostic data, adjustment of management, discussion with other providers, nursing nursing and ancillary staff involved in patient's care documentation, 36 Minutes Medications at Discharge Home Medications multivitamin with minerals 1 tab PO DAILY 03/21/24 megestrol 40 mg tablet 40 mg PO BID 14 days #28 tabs 03/22/24 polysaccharide iron complex 150 mg iron capsule 150 mg PO DAILY #60 caps 03/23/24 Physical Exam Narrative GENERAL: cooperative HEENT: Atraumatic; normocephalic EYES; Anicteric, Normal Conjunctiva NECK; supple, normal thyroid, RESPIRATORY: Diminished to auscultation CARDIOVASCULAR: Regular S1 S2, GI: soft, normoactive bowel sounds, : No Renal angle tenderness; EXTREMITIES: No edema, no clubbing, MUSCULOSKELETAL: no muscle wasting NEURO: Awake; no lateralizing signs. SKIN: No Rash PSYCH; Flat affect Weight / BMI Weight Weight: 87.5 kg Body Mass Index (BMI) 34.2 ABG / Lab / Microbiology Data 03/23/24 05:12 03/23/24 05:12 Laboratory: Laboratory Results - last 24 hr 03/21/24 02:55: Crossmatch See Detail 03/22/24 13:10: Hgb 8.8 L, Hct 27.5 L 03/23/24 05:12: WBC 5.9, RBC 3.01 L, Hgb 8.0 L, Hct 26.2 L, MCV 87.0, MCH 26.6 L , MCHC 30.5 L, RDW Std Deviation 52.2 H, RDW Coeff of Oyselyn 16.6 H, Plt Count 277, MPV 9.6, Immature Gran % (Auto) 0.700, Neut % (Auto) 57.0, Lymph % (Auto) 32.3, [place] % (Auto) 4.6, Eos % (Auto) 4.4, Baso % (Auto) 1.0, Absolute Neuts (auto) 3.4, Absolute Lymphs (auto) 1.90, Nucleated RBC % 0, Sodium 140, Potassium 3.4 L , Chloride 110 H, Carbon Dioxide 22.0, Anion Gap 8, BUN 10, Creatinine 0.61, Estim Creat Clear Calc 115.73, Est GFR (MDRD) Af Amer 132, Est GFR (MDRD) Non-Af 109, BUN/Creatinine Ratio 16.3, Glucose 98, Calcium 8.5, Phosphorus 4.1, Magnesium 1.9 D/C Instructions Discharge Diet: No restrictions Discharge Activity: Return to Normal Activity Call your doctor if you observe: Fever of 101 or Higher, Shortness of breath, Fainting spells and Chest pain Meaningful Use Info Meaningful Use Meaningful Use Diagnoses (Choose all that apply): None applicable Ischemic Stroke Statin Dosing Therapy Reference: STATIN DOSE THERAPY REFERENCE: * Patients > 75 years receive moderate or high dose statin therapy. * Patients 75 years or YOUNGER should receive HIGH intensity statin dose unless contraindicated. You will be required to document reason for non-treatment if statin daily dose does not meet guidelines. HIGH DOSE STATIN THERAPY DAILY Atorvastatin > than or = to 40 mg Rosuvastatin > than or = to 20 mg Amlodipine + Atorvastatin > than or = to 2.5/40 mg Ezetimibe + Simvastatin 10/80 mg Simvastatin 80mg Discharge Plan Admission Admit Date/Time: 03/21/24 05:10 Attending Provider: Dequan Solis Primary Care Provider: Care Physician,No Primary Consulting Providers: Rajat Carter; Oliva Escalera; Kym Sherwood Discharge Orders/Prescriptions Prescriptions: New megestrol 40 mg Tablet 40 mg PO BID 14 Days Qty: 28 0RF polysaccharide iron complex 150 mg iron capsule 150 mg PO DAILY Qty: 60 0RF Continued multivitamin with minerals Tablet Extended Release 1 tab PO DAILY Discontinued chlorophyllin copper com(bulk) 100 % powder miscellaneous Referrals / Follow Up: Kim Watters MD [Med Staff - Active Staff] - 03/24/24 Care Physician,No Primary [Primary Care Provider] - Within 2 Weeks Disposition Disposition (needs filled in before D/C Order can be placed): Home, Self Care Charges/Coding Visit Charges Inpatient E&M: 43677 Disch Hosp >30min
[2024-03-23 08:07] VITALS: BP 107/68; PULSE 77; RESP 16; TEMP 36.3; O2SAT 97
[2024-03-23] MEDS: Megestrol 40 MG Tablet PO (08:09)
[2024-03-23 09:47] VITALS: BP 107/68; PULSE 77; RESP 16; TEMP 36.3; O2SAT 97
== END 2024-03-23 10:48 | disposition home or self-care (01) | DRG 760 ==
LOC: ED 02:36 → ICU 05:24
PROVIDERS: Internal Medicine; Admitting Provider Family Medicine; Emergency Provider Emergency Medicine; Visit Provider Internal Medicine
DX: N92.0 Excessive and frequent menstruation with regular cycle (principal); D62 Acute posthemorrhagic anemia; E66.9 Obesity, unspecified; R93.89 Abnormal findings on diagnostic imaging of other specified body structures; Z68.34 Body mass index [BMI] 34.0-34.9, adult
CPT/HCPCS: 36415; 76830; 80048; 80053; 81001; 81025; 83735; 83880; 84100; 84484; 85014; 85018; 85025; 85610; 85730; 86850; 86900; 86901; 86920; 86922; 93005; 99284; J7030; J7040; P9016; A4216

== ENCOUNTER 2024-03-24 11:56 | Day surgery (SDC) | payer OTHER, SELFPAY ==
[2024-03-24] VITALS (8 sets, daily range): BP systolic 115–128; BP diastolic 75–86; PULSE 75–82; RESP 14–16; TEMP 36.2–36.6; O2SAT 99–100; BMI 34.3
[2024-03-24] MEDS: Lactated Ringers 1,000 ML 15 ML IV (12:24)
--- NOTE | 2024-03-24 12:48 | PRE.ANES_ITS ---
ASA Classification* ASA Classification ASA Classification: 2 Assessment & Plan Anesthesia* Anesthesia Assessment Anesthesia Assessment: Discussed sedation and/or anesthesia options, risks, benefits, and alternatives with patient/parents/legal guardian/POA. Questions invited. The patient/parents/legal guardian/POA seems to understand and agrees to proceed with anesthesia plan. Reviewed the physical assessment, medical history, allergy history and patient home medications list prior to surgery/procedure/anesthetic and documented any changes. Performed airway and anesthesia risk assessments. Anesthesia Type Anesthesia Type: MAC Anesthesia Focused Assessment* Temperature: 98 F Pulse Rate: 79 Blood Pressure: 124/86 Respiratory Rate: 16 Pulse Ox: 100 Airway Assessment Mouth opens: >3 cm Mallampati Score: II Focused Labs Anesthesia Preop lab: CBC WBC 5.9 K/mm3 (4.4-11.0) 03/23/24 05:12 RBC 3.01 M/mm3 (4.2-5.4) L 03/23/24 05:12 Hgb 8.0 g/dL (12.0-15.0) L 03/23/24 05:12 Hct 26.2 % (37-47) L 03/23/24 05:12 Plt Count 277 K/mm3 (150-450) 03/23/24 05:12 CHEMISTRY Potassium 3.4 mmol/L (3.5-5.1) L 03/23/24 05:12 Sodium 140 mmol/L (136-145) 03/23/24 05:12 Magnesium 1.9 mg/dL (1.6-2.6) 03/23/24 05:12 Phosphorus 4.1 mg/dL (2.5-4.9) 03/23/24 05:12 BUN 10 mg/dL (7-18) 03/23/24 05:12 Creatinine 0.61 mg/dL (0.55-1.02) 03/23/24 05:12 Glucose 98 mg/dL (74-106) 03/23/24 05:12 TSH 1.55 uIU/mL (0.358-3.74) 08/23/23 11:25 COAG PT 13.1 SECONDS (11.7-14.9) 03/21/24 02:25 Urine Test Negative Negative 03/21/24 02:55 Pre-Assessment Diagnosis/Proposed Procedure Planned Operative Procedure(s): HYSTEROSCOPY, D&C, LILETTA IUD INSERTION Anesthesia History 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 When Was Last Pacemaker Check QUESTION #4 FULL TEXT: You/Your Family Experience fever (hyperthermia) with Anesthesia Last Oral Intake Last Oral intake: Last Oral Intake NPO since 07:00 03/24/24 12:16 Meds taken in AM with sips of Yes 03/24/24 12:16 water? 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 Female Yes 03/23/24 10:41 HX of Motion Sickness No 03/23/24 10:41 HX of N/V After Surgery No 03/23/24 10:41 Non-Smoker Yes 03/23/24 10:41 Duration of Surgery greater No 03/23/24 10:41 than 60 minutes Number of Risk Factors 2 03/23/24 10:41 PONV Score Moderate Risk 03/23/24 10:41 Height & Weight Height & Weight: Anesthesia: Height & Weight Height 5 ft 3 in 03/24/24 12:16 Weight: 87.997 kg 03/24/24 12:16 Body Mass Index (BMI) 34.3 03/24/24 12:16 Respiratory Assessment Respiratory Assessment - turner machine operator: Respiratory Tract Infection Hx - turner machine operator Hx Respiratory Tract Infection No 03/23/24 10:41 STOP Sleep Apnea STOP Sleep Apnea - turner machine operator: STOP Sleep Apnea - turner machine operator Hx Hypertension No 03/23/24 10:41 Hx Sleep Apnea No 03/23/24 10:41 CPAP BIPAP Do you snore loudly (louder No 03/23/24 10:41 than talking or can be heard Do you often feel tired/ No 03/23/24 10:41 fatigued/ sleepy during daytime? Has anyone observed you stop No 03/23/24 10:41 breathing during sleep? STOP Results Negative 03/23/24 10:41 QUESTION #5 FULL TEXT : Do you snore loudly (louder than talking or can be heard through closed doors)? 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 Specify any problems Hx of Preganancy in last 3 No 03/23/24 10:41 Months Nurse Filling Out Transfusion VCHRISTIN 03/23/24 10:41 & Questions: Date: 03/23/24 03/23/24 10:41 Time: 10:42 03/23/24 10:41 Patient unable to answer at this time (ie. confused, unrespo /Reproduction History /Reproductive History - turner machine operator: /Reproductive Hx- turner machine operator Hx Now No 03/23/24 10:41 Gestational Age (in weeks): EDC: Hx Hx Para Hx Section SAB No 03/23/24 10:41 Active Medications Active Medications: Current Medications Generic Name Dose Route Start Last Admin Trade Name Freq PRN Reason Stop Dose Admin Lactated Ringer's 1,000 mls @ 15 mls/hr 03/24/24 12:15 03/24/24 12:24 IV 15 mls/hr .Q48H PRAVEENA Administration Levonorgestrel 1 each 03/24/24 13:50 Levonorgestrel Iud (Liletta) INTRA-UTER 03/24/24 13:51 X1 ONE PFSH Medical History Wears dentures Wears glasses Constipation Non-smoker Shortness of breath on exertion History of edema Anemia Home Medications ?Medication ?Instructions ?Recorded ?Last Taken ?Type multivitamin with minerals 1 tab PO DAILY 03/21/24 Unknown History megestrol 40 mg tablet 40 mg PO BID 14 days #28 tabs 03/22/24 03/24/24 07:00 Rx polysaccharide iron complex 150 mg 150 mg PO DAILY #60 caps 03/23/24 Unknown Rx iron capsule Allergy/AdvReac Type Severity Reaction Status Date / Time No Known Allergies Allergy Verified 03/24/24 12:14 Surgical History Hx of tubal ligation History of oophorectomy, unilateral Social History Smoking Status: Never smoker Review of Systems (Anesthesia) ROS Narrative System reviewed and no additional complaints, except as documented.
--- NOTE | 2024-03-24 13:22 | PCM.HP.BLA ---
History and Physical Date of Admission: 03/24/24 Assessment & Plan Assessment/Plan (1) Abnormal vaginal bleeding: PLAN: Heavy vaginal bleeding for 2 months. Hgb 8.9 about 6 months ago, and now 5.3 in ER. Receiving 2 units PRBC's. Vital signs are stable. Check CBC 4 hours after transfusion and Provera taper started for now. Discussed possible polyp, perimenopause, and concern for hyperplasia or malignancy given obesity. Discussed need for endometrial sampling and benefits of progesterone IUD. Discussed may need D&C. Will wait for results of pelvic US and post transfusion CBC. Will update provider coming financial [employer] representative Dr. Saldivar. (2) Anemia: HPI Consult Data Date of Consult: 03/21/24 HPI Narrative HPI Narrative: SHAHNAZ SAWYER, is a 48 F who presents with vaginal bleeding. She reports she has not seen a entertainment director in years. She was having regular, monthly menstrual cycles up until about 2 months ago. She skipped a period and then had heavy bleeding. The heavy bleeding has been daily for 2 months. She came into the ER overnight due to feeling lightheaded and dizzy. [facility] Medical History Anemia Home Medications ?Medication ?Instructions ?Recorded ?Last Taken ?Type chlorophyllin copper com(bulk) 100 ea miscellaneous 03/21/24 Unknown History % powder multivitamin with minerals 1 tab PO DAILY 03/21/24 Unknown History Allergy/AdvReac Type Severity Reaction Status Date / Time No Known Allergies Allergy Verified 03/21/24 01:58 Surgical History History of oophorectomy, unilateral Social History Smoking Status: Never smoker Physical Exam Const alert and no apparent distress General Appearance: comfortable HEENT normocephalic Resp normal respiratory effort GI soft to palpation, non-tender and non-distended external exam normal, adnexae non-tender and no adnexal masses Narrative: About 30-40 cc of dark red blood and small blood clots removed from the vagina. The cervix was difficult to fully visualize given bed and light limitations in ICU. On bimanual exam the cervix feels parous and dilated, and a possible 1 cm polyp is noted just inside the external cervical os. Lab / Micro Data 03/21/24 02:25 03/21/24 02:25 Labs: Laboratory Results - last 24 hr 03/21/24 02:25: WBC 5.2, RBC 1.99 L, Hgb 5.3 L*, Hct 17.3 L, MCV 86.9, MCH 26.6 L, MCHC 30.6 L, RDW Std Deviation 51.3 H, RDW Coeff of Yoselyn 16.2 H, Plt Count 301, MPV 9.1, Immature Gran % (Auto) 0.600, Neut % (Auto) 70.1 H, Lymph % (Auto) 20.8, Ray % (Auto) 5.2, Eos % (Auto) 2.5, Baso % (Auto) 0.8, Absolute Neuts (auto) 3.7, Absolute Lymphs (auto) 1.08, Nucleated RBC % 0, Differential Comment SCANNED, Diff Path Review May foll, Polychromasia 1+, Hypochromasia 2+, Anisocytosis 1+, PT 13.1, INR 1.0, APTT 26.0, Sodium 140, Potassium 3.7, Chloride 110 H, Carbon Dioxide 25.0, Anion Gap 5, BUN 9, Creatinine 0.64, Estim Creat Clear Calc 110.10, Est GFR (MDRD) Af Amer 125, Est GFR (MDRD) Non-Af 104, BUN/Creatinine Ratio 14.0, Glucose 111 H, Calcium 8.8, Total Bilirubin 0.20, AST 20, ALT 31, Alkaline Phosphatase 46, Troponin I High Sens 4, B-Natriuretic Peptide 19.7, Total Protein 6.7, Albumin 3.3, Globulin 3.4, Albumin/Globulin Ratio 1.0, Blood Type A NEGATIVE, Antibody Screen NEGATIVE, Crossmatch See Detail 03/21/24 02:55: Urine Color Yellow, Urine Clarity Sl. Cloudy, Urine pH 7.0, Ur Specific [place] 1.010, Urine Protein 15 H, Urine Glucose (UA) Normal, Urine Ketones Negative, Urine Occult Blood 250 H, Urine Nitrite Negative, Urine Bilirubin Negative, Urine Urobilinogen Normal, Ur Leukocyte Esterase Negative, Urine RBC 10-25 SEEN, Urine WBC 0 SEEN, Ur Squamous Epith Cells 0-5 SEEN, Urine Bacteria 0 SEEN, Urine Mucus 0 SEEN UP date today-patient denies any active vaginal bleeding. Risk benefits and alternatives to hysteroscopy D&C possible polyp resection, IUD insertion reviewed with the patient, her questions were answered to her satisfaction she desires to proceed.
--- NOTE | 2024-03-24 13:23 | PCM.DC ---
Discharge Instructions Diet Discharge Diet: No restrictions Activity Return to work on:: 03/27/24 May resume sexual activity in: 2 weeks Lifting Restrictions: none Dressing / Incision Call your doctor if your incision/area has: Sudden Increased Bleeding and Foul Smelling Discharge Call your doctor if you observe: Fever of 101 or Higher and Using more than 1 pad per hour (for 2 hrs in a row) Follow Up Care Please Follow Up With: Dodie Hdez MD When: Keep your appointment in April with Dr. Russell. Call [phone] to make an appointment or with any concerns. Test Results: Test results from this visit will be discussed in further detail at your follow-up appointment, if applicable. Discharge Plan Admission Attending Provider: Dodie Hdez Primary Care Provider: Care PhysicianMarii Primary Instructions Print Language: Ethiopian Discharge Orders/Prescriptions Prescriptions: No Action multivitamin with minerals Tablet Extended Release 1 tab PO DAILY megestrol 40 mg Tablet 40 mg PO BID 14 Days Qty: 28 0RF polysaccharide iron complex 150 mg iron capsule 150 mg PO DAILY Qty: 60 0RF Referrals / Follow Up: Care Physician,No Primary [Primary Care Provider] - Disposition Disposition (needs filled in before D/C Order can be placed): Home, Self Care
--- NOTE | 2024-03-24 13:25 | OP.PCM_ITS ---
Problems Associated Problem List Diagnoses (1) Acute blood loss anemia: (2) Endometrial thickening on ultrasound: (3) Abnormal vaginal bleeding: Report of Operation Date of Procedure: 03/24/24 Pre-Operative Diagnosis: aub, thickened endometrial lining, chronic blood loss fe def. anemia Post-Operative Diagnosis: same Surgery/Procedure Performed:: Hysteroscopy D&C with IUD insertion and polyp removal Description of Surgical Findings:: Lush endometrium, polypoid appearing lesions in the endometrial cavity 1 on the right side and 1 on the left fundal area. Cervix with evidence of previous cervical laceration and is patulous. Normal vagina. Surgeon: Dodie Hdez automatic steel tie adjuster: None Type of Anesthesia: MAC/Supplemental/Local Anesthesiologist: Robert Miranda Special Medications: none Specimen's removed: endometrial curettings and polyp Drains: none Estimated Blood Loss (mL): 10 Fluids Replaced: 500 Description of Procedure: The patient was taken to the OR where she was prepped and draped in dorsal lithotomy position. The weighted speculum was placed in the vagina and the anterior lip of the cervix was grasped with a single-tooth tenaculum. A paracervical block was administered with [1% lidocaine with 1-100,000 epinephrine solution]. The cervix was dilated serially with Hegar dilators. The [5mm] hysteroscope was placed into the uterine cavity and the above findings were noted. Bilateral tubal ostia [were] identified. The hysteroscope was removed. A gentle sharp curettage was done of the uterine cavity. A large amount of tissue returned. I replaced the hysteroscope and ensured that all the polypoid lesions were removed. No other focal abnormalities were noted. The Liletta IUD was inserted in the usual sterile fashion and deployed without difficulty. The uterus sounded to 10 cm. The strings were cut to 2 cm the instruments were removed from the vagina. The specimen was handed off and sent to pathology. All sponge and needle counts were correct. Vaginal sweep was performed by me. The patient was awakened and taken to the recovery room in stable condition. Hysteroscopic fluid deficit is 250 cc of normal saline Grafts/Implants Used: Liletta IUD Procedure Start Time: 13:36 Procedure Stop Time: 13:46 Complications none Admit VTE Documentation VTE Present on Admission: No VTE Mechan Device Prophylaxis: SCD's VTE Pharm Prophylaxis ordered?: No Reason prophylaxis not ordered:: Procedure Not Indicated
[2024-03-24] MEDS: Lidocaine 1% /Epi 1:100 (20ml) 20 ML Vial (13:36)
[2024-03-24] MEDS: Levonorgestrel IUD (Liletta) 1 EACH INTRA-UTER (13:41)
--- NOTE | 2024-03-24 13:50 | EMB_PTH ---
PATIENT: SHAHNAZ SAWYER LOC: [facility] U#:[id number] AGE/SX: 48/F ROOM: RE03/24/[address]: Dr. Dodie Hdez MD : 1975 BED: DIS: 03/24/2024 SPEC #: [id number] RECD: 03/24/24 14:17 STATUS: ROMY DASH #: [id number] JAIME: 03/24/24 13:[address]: Dodie Hdez DEPT: SURGICAL PATHOLOGY RECD BY: Gildardo Atkins ENTERED: 03/27/24 09:11 SP TYPE: ENDOM BX/C TIN DR: No Primary Care Phys Tissues: Endometrium, NOS Procedures: Surgery Specimen Level IV HEADER OPERATION: Hysteroscopy, D&C PRE-OP DIAGNOSIS: Abnormal vaginal bleeding TISSUE SUBMITTED: Endometrial curettings, polyp MICROSCOPIC DIAGNOSIS Endometrial curettings: Simple cystic endometrial hyperplasia without atypia and with superimposed secretory changes. See comment. SARAHI/ 03/28/2024 COMMENT Clinical correlation and appropriate follow up are necessary. Case has been reviewed in consultation with Dr. Galindo who concurs with the above diagnosis. IDC:AM MICROSCOPIC DESCRIPTION Slides are reviewed. GROSS DESCRIPTION Received in fixative is one container labeled with the patient's name and designated Endometrial curetting/polyp. The specimen consists of multiple fragments of anguiano soft tissue that in aggregate measure 5.0 x 3.0 x 1.5 cm. The specimen is totally submitted in ten cassettes. 03/27/2024 TC:5 CPT:93635
--- NOTE | 2024-03-24 14:01 | PCM.POST.ANE ---
Anesthesia: Postop Eval I Current Vital Signs Temperature: 97.2 F Pulse Rate: 80 Blood Pressure: 128/75 Respiratory Rate: 14 Pulse Ox: 100 Oxygen Delivery Method: Room Air Assessment Airway patent: Yes Spontaneous unlabored respirations: Yes Mental status: Awake and Calm nausea: No Vomiting: No Anesthesia Complication: No Fluid Hydration Crystalloid volume administer (ml): 300 Total IV fluid infused: 300 Progress Note Anesthesia document: Postop Eval 1 completed: Yes
--- NOTE | 2024-03-24 17:28 | POSTOPAN2_ITS ---
Anesthesia Postop Eval I Sum Postop Eval Completion status Anesthesia document: Postop Eval 1 completed: Yes Anesthesia Postop Eval I Summary Anesthesia Postop Eval I Summary: Anesthesia Postop Eval I: Assessment Summary Airway patent Yes 03/24/24 14:01 [email or web address] [email or web address] Spontaneous unlabored Yes 03/24/24 14:01 WOOD FORM [email or web address].[email or web address] respirations Mental status Awake,Calm 03/24/24 14:01 [email or web address] [email or web address] nausea No 03/24/24 14:01 WOOD [email or web address].[email or web address] Vomiting No 03/24/24 14:01 WOOD FORM [email or web address].[email or web address] Anesthesia Postop Eval I: Fluid Summary Crystalloid volume administer 300 03/24/24 14:01 [email or web address] [email or web address] (ml) Colloids volume administered ( ml) Blood Product volume administered (ml) Total IV fluid infused 300 03/24/24 14:01 [email or web address] FORM BUILDER.[email or web address] Anesthesia Postop Eval I: Summary Notes Anesthesia Complication No 03/24/24 14:01 WOOD FORM BUILDER.[email or web address] Anesthesia Complication Comment: Post-operative progress note Anesthesia: Postop Eval II Evaluation Mental status: Awake and Calm Pain Level: 1 nausea: No Vomiting: No Complications Anesthesia Complication: No
--- NOTE | 2024-03-24 17:28 | PCM.POSTANE2 ---
Anesthesia Postop Eval I Sum Postop Eval Completion status Anesthesia document: Postop Eval 1 completed: Yes Anesthesia Postop Eval I Summary Anesthesia Postop Eval I Summary: Anesthesia Postop Eval I: Assessment Summary Airway patent Yes 03/24/24 14:01 QUENCHING CAR [email or web address].[email or web address] Spontaneous unlabored Yes 03/24/24 14:01 QUENCHING CAR OPERATOR.MTU respirations Mental status Awake,Calm 03/24/24 14:01 QUENCHING CAR OPERATOR.[email or web address] nausea No 03/24/24 14:01 QUENCHING CAR OPERATOR.[email or web address] Vomiting No 03/24/24 14:01 QUENCHING CAR OPERATOR.[email or web address] Anesthesia Postop Eval I: Fluid Summary Crystalloid volume administer 300 03/24/24 14:01 QUENCHING CAR OPERATOR.[email or web address] (ml) Colloids volume administered ( ml) Blood Product volume administered (ml) Total IV fluid infused 300 03/24/24 14:01 QUENCHING CAR OPERATOR.[email or web address] Anesthesia Postop Eval I: Summary Notes Anesthesia Complication No 03/24/24 14:01 QUENCHING CAR OPERATOR.[email or web address] Anesthesia Complication Comment: Post-operative progress note Anesthesia: Postop Eval II Evaluation Mental status: Awake and Calm Pain Level: 1 nausea: No Vomiting: No Complications Anesthesia Complication: No
== END 2024-03-24 15:19 | disposition home or self-care (01) ==
LOC: SDC 12:01 → AC 12:02
PROVIDERS: Referring Provider Obstetrics & Gynecology; Visit Provider Obstetrics & Gynecology
PROC: 0UDB8ZZ Extraction of Endometrium, Via Natural or Artificial Opening Endoscopic (ICD-10-PCS; CPT 58558; principal; 2024-03-24 13:40)
DX: N85.01 Benign endometrial hyperplasia (principal); N93.9 Abnormal uterine and vaginal bleeding, unspecified; D50.0 Iron deficiency anemia secondary to blood loss (chronic); Z90.721 Acquired absence of ovaries, unilateral; Z98.51 Tubal ligation status
CPT/HCPCS: 58558; 58300; 88305; J7120; J2405